=== PATIENT | female | born 1950 | race Caucasian/White ===

== ENCOUNTER → 2016-03-23 | Outpatient (CLI) | payer OTHER ==
[~2016-03-23] MED LIST: CHOL2000 PO; CYAN10004 PO; HYDR-5688 PO; LEVO75TA5 PO; MULT-190 PO; PRAV20TA PO
== END | disposition home or self-care (01) ==
LOC: C.RDSM 15:21
PROVIDERS: ATTEND Physical Medicine & Rehabilitation Sports Medicine
DX: M75.121 Complete rotator cuff tear or rupture of right shoulder, not specified as traumatic (principal)

== ENCOUNTER → 2016-04-29 | Day surgery (SDC) | payer OTHER ==
[2016-03-24 09:19] VITALS: BMI 26.0
[2016-04-09 08:29] VITALS: Ht 165.1 cm; Wt 72.7 kg
--- NOTE | 2016-04-09 14:49 | PAT Medication Instructions ---
Service Date Apr 09, 2016. Current Home Medication List Cholecalciferol (Vitamin D3), 1 CAP PO NOON Cyanocobalamin (Vitamin B-12 1000 Mcg), 1,000 MCG PO NOON Levothyroxine Sodium (Levothyroxine Sodium), 1 TAB PO QAM Ocuvite Preservision (Ocuvite Preservision), 1 TAB PO NOON Pravastatin Sodium (Pravachol), 20 MG PO HS Medication Instructions For Your Scheduled Surgery - Hold the following medications the morning of surgery: Ocuvite Preservision (Ocuvite Preservision), 1 TAB PO NOON Cholecalciferol (Vitamin D3), 1 CAP PO NOON Cyanocobalamin (Vitamin B-12 1000 Mcg), 1,000 MCG PO NOON - Take the following medications the morning of surgery with a sip of water: Levothyroxine Sodium (Levothyroxine Sodium), 1 TAB PO QAM - Take the following medications as scheduled the night before surgery: Pravastatin Sodium (Pravachol), 20 MG PO HS If you have any questions please call us at [phone] or [phone] ( [place]) or [phone]
[2016-04-09 15:19] LABS: HEMATOCRIT 40.1 % (37-47); MEAN CELL VOLUME 85.9 fL (80-100); MEAN CORPUSCULAR HEMOGLOBIN 30.2 pg (25-34); MEAN CORPUSCULAR HGB CONC 35.2 g/dl (32-36); MEAN PLATELET VOLUME 10.1 fL (7.4-10.4); PLATELET COUNT 252 K/uL (130-400); RED BLOOD COUNT 4.67 M/uL (4.2-5.4)
--- NOTE | 2016-04-09 15:23 | DIAGNOSTIC IMAGING REPORT ---
CHEST PREADMISSION(PA/LAT) CLINICAL HISTORY: Preoperative chest COMPARISON STUDY: No previous studies for comparison. FINDINGS: The cardiac and mediastinal contours are normal. There is no evidence of focal pulmonary consolidation. There is no evidence of failure. No pleural effusions are visualized.[ IMPRESSION: No active disease in the chest. Electronically signed by: Shaun Blackwood M.D. 04/09/2016 3:21 PM Dictated Date/Time: 04/09/2016 3:21 PM
[2016-04-09 15:38] LABS: BUN/CREATININE RATIO 21.7 (10-20); CALCIUM 9.3 mg/dl (8.5-10.1); CREATININE 0.75 mg/dl (0.60-1.20); POTASSIUM 3.8 mmol/L (3.5-5.1)
[~2016-04-29] VITALS: Ht 165.1 cm; Wt 72.7 kg
[~2016-04-29] MED LIST changes: +ATROPINE SULFATE 0.1 MG/ML 5ML SYR IV PRN; +BUPIVACAINE/EPINEPHRINE 0.25% 1:200,000 30 ML VIAL ONE; +BUPIVACAINE/EPINEPHRINE 0.5% MPF 1:200,000 30 ML VIAL ONE; +CEFAZOLIN 1000MG/55 ML D5W IV SCH; +DEXAMETHASONE SOD INJ 4 MG/ML VIAL ONE; +EpHEDrine SULFATE INJ 50 MG/ML AMP IV PRN; +EpHEDrine SULFATE INJ 50 MG/ML AMP ONE; +EpINEphrine INJ 1MG/ML AMP 1 MG/ML AMP ONE; +FENTANYL CITRATE INJ 50 MCG/1 ML 2 ML VIAL ONE; +GLYCOPYRROLATE INJ 0.2 MG/ML VIAL ONE; +HYDROmorphone INJ 2 MG/ML SYR/VIAL IV PRN; +LACTATED RINGER'S 1000ML 1,000 ML IV SCH; +LIDOCAINE HCL 1% MPF 2 ML VIAL ONE; +LIDOCAINE HCL 2% 2 ML VIAL (20MG/ML) ONE; +LIDOCAINE/EPINEPHRINE 1% INJ 50 ML VIAL ONE; +MIDAZOLAM HCL 1 MG/ML 2ML VIAL ONE; +MoRPHine SULFATE 2 MG/ML CARP IV PRN; +MoRPHine SULFATE 4 MG/ML 1 ML CARP\\VIAL IV PRN; +NEOSTIGMINE METHYLSULFATE 5 MG/5 ML SYR ONE; +ONDANSETRON INJ 2 MG/ML 2 ML VIAL IV PRN; +ONDANSETRON INJ 2 MG/ML 2 ML VIAL ONE; +OXYCODONE/ACETAMINOPHEN 5-325 TAB PO PRN; +PHENYLEPHRINE 100MCG/ML 5ML SYR IV PRN; +PHENYLEPHRINE HCL INJ 10 MG/ML VIAL ONE; +PROPOFOL IV EMULSION 10 MG/ML 20 ML VIAL IV ONE; +ROCURONIUM BROMIDE 10 MG/ML 5 ML VIAL ONE; +ROPIVACAINE 0.5% 5 MG/ML 30 ML VIAL ONE; +SODIUM CHLORIDE 0.9% 1000ML 1,000 ML IV SCH; +SUCCINYLCHOLINE CHLORIDE 20 MG/ML 10 ML VIAL IV ONE
--- NOTE | 2016-04-29 08:19 | History & Physical Bridge Note ---
H&P Re-Evaluation Bridge Note: I have examined the patient, reviewed the History & Physical and in the interval since the performance of the History & Physical I have noted the following changes of clinical significance: No changes noted
[2016-04-29] MEDS: SCOPOLAMINE 1.5 MG TDSY TD ONE ×2 (09:30→09:34)
--- NOTE | 2016-04-29 12:55 | [facility] Post Operative Brief Note ---
Immediate Operative Summary Operative Date Apr 29, 2016. Pre-Operative Diagnosis Right Shoulder Rotator Cuff Tear Post-Operative Diagnosis Same Procedure(s) Performed Right Shoulder Arthroscopic Rotator Cuff Repair, Subacromial Decompression, biceps tenotomy Surgeon Dr. Cm Molding Machine Operator Surgeon(s) Dr. Quesada; Ryder Mcgrath PA-C Estimated Blood Loss 25ml Findings cuff tear 2.5-3cm Specimens None Anesthesia SANCHEZ with block Complication(s) None Disposition Recovery Room / PACU
--- NOTE | 2016-04-29 13:12 | Discharge Instructions-SurgCtr ---
Discharge Instructions Date of Service Apr 29, 2016. Visit Reason for Visit: Right Shoulder Rotator Cuff Tear Discharge Discharge Diagnosis / Problem: Right shoulder rototor cuff repair Discharge Goals Goal(s): Decrease discomfort, Improve function, Increase independence Activity Recommendations Activity Limitations: per Instructions/Follow-up section No range of motion right shoulder Anesthesia . Post Anesthesia Instructions: If you have had General Anesthesia or IV Sedation: * Do not drive today. * Resume driving when surgeon permits. * Do not make important decisions or sign legal documents today. * Call surgeon for: 1. Temperature elevations greater than 101 degrees F. 2. Uncontrollable pain. 3. Excessive bleeding. 4. Persistent nausea and vomiting. 5. Medication intolerance (nausea, vomiting or rash). * For nausea and vomiting use only clear liquids such as: tea, soda, bouillon until nausea subsides, then gradually increase diet as tolerated. * If you have any concerns or questions, call your surgeon's office. If physician is unavailable and it is an emergency, call 911 or go to the nearest emergency room. . Instructions / Follow-Up Instructions / Follow-Up The following are instructions to follow after "Shoulder Surgery" including, Acromioplasty, Rotator Cuff Repair and Instability Surgery ACTIVITY RECOMMENDATIONS: * Minimize activity after surgery. * No excessive walking, jogging, sports or laboring. * Return to activity is individualized depending on the patient and type of surgery. * Driving is not permitted until at least your first post operative visit. Please ask your doctor when it is safe to resume driving. * Expect increased discomfort with increased activity. Continue to ice the shoulder as needed. SCHOOL/WORK RECOMMENDATIONS: * You may return to sedentary work or school when you are feeling more comfortable. This is usually 3-7 days after surgery. MEDICATIONS: * You will have a prescription for pain medication and an anti-inflammatory medication after surgery. * Use the pain medication for severe pain and the anti-inflammatory for less severe pain. Once the pain medication has run out, try to use the anti-inflammatory medication. If this is not effective, contact the office for assistance. * The pain medication may cause nausea, constipation and drowsiness. You should see how they affect you before driving or similar activity. * The anti-inflammatory medication may cause stomach upset and bleeding. If this occurs let your doctor know immediately . * Take a stool softener like Colace or a laxative like Senokot to prevent constipation. DIET: * Resume previous diet. SPECIAL CARE: ICE: You have the option of an ice cooler, gel packs or ice bags. * If you have an ice cooler, refer to the instructions for that device. The ice cooler may be used continuously. * If you do not have an ice cooler, you will need to use ice bags or gel packs. Do not apply ice directly to the skin. Use a thin dressing or richard shirt between the skin and ice bag. Apply ice for 20-30 minutes and repeat every 2-4 hours. This is especially important for the first 7-10 days after surgery. Once the pain improves, use ice as needed. ELEVATION: * You may be more comfortable sleeping in an upright position. Use the sling to elevate your arm. DRESSING: * Your dressing will be changed at your first therapy appointment approximately 4-5 days after surgery. Band-aids, tape strips or gauze may be applied. You may then change your dressing daily. * Reapply dressing followed by the EBIce cooling pad (if chosen) and then the sling. * Always wash your hands prior to touching the incision area. * Once the stitches are removed, you may leave the wound open to air or cover with gauze. * Expect some bloody drainage for the first few days after surgery. * Leave the tape strips, if present, in place for 5-7 days. * Band-aids and gauze may be changed daily. * There may be a gauze pad in your armpit area. This can be changed daily or replaced by a dry washcloth. SLING/BRACE: * You will need to use a sling or brace after surgery. The length of time the sling is used is dependent upon the type of surgery performed. * Arthroscopic Acromioplasty requires use of the sling for 2-4 weeks for comfort. * Labral procedures and Rotator Cuff Repairs require use of the sling for a longer period of time. Please check with your doctor prior to discontinuing the sling. BATHING: * You may shower or sponge-bathe immediately after surgery. The post operative shoulder dressing is mostly water-tight. You may shower right over this dressing, but be reasonably careful not to get the gauze or incision wet. * Once the dressing has been changed on the fourth or fifth day after surgery, you may shower and get the incision wet. * Wash with regular soap and water. * Do not bathe (submerge the incision), soak, swim or use a hot tub until the incision is completely healed over with normal skin and the doctor has given the OK to proceed. * There is no need to apply any ointments, powders or salves to your incision. * Do not apply alcohol or hydrogen peroxide directly to the incision. * Diluted peroxide (50:50 mixture with sterile saline) may be used to clean dried blood from around the incision area. THERAPY: * You will begin therapy four or five days after surgery. * Organized therapy with the therapist is important for the first 2-4 months after surgery depending on the type of procedure. During that time you will attend therapy 1-3 times per week. * You will also need to do daily exercises for range of motion and strength as instructed. * Patients who have a Capsular Shift Procedure will need to abide by temporary range of motion limitations. * Patients having Rotator Cuff Surgery are not allowed to actively lift their arms until 4-6 weeks after surgery. * Please check with your doctor regarding appropriate motion restrictions. FOLLOW UP VISIT: * If not already scheduled, please call the office at to schedule a follow-up appointment for 10 days after surgery and monthly thereafter. * Follow up with Dr. Cm on 05/10/16 at 12:00 p.m. * Start physical therapy as scheduled on Tuesday or Tuesday in [facility]. Diet Recommendations Home Diet: no limitations, resume previous diet Procedures Procedures Performed: Right Shoulder Arthroscopic Rotator Cuff Repair, Subacromial Decompression, biceps tenotomy Pending Studies Studies pending at discharge: no Medical Emergencies . Who to Call and When: Medical Emergencies: If at any time you feel your situation is an emergency, please call 911 immediately. . Non-Emergent Contact Non-Emergency issues call your: Primary Care Provider, Surgeon Call Non-Emergent contact if: temperature is above 101.5, your pain is not controlled, your pain is worsening . . "Provider Documentation" section prepared by Alyson Mcgrath.
--- NOTE | 2016-04-29 13:18 | [facility] Operative Report ---
Operative Report Operative Date Apr 29, 2016. Pre-Operative Diagnosis Right Shoulder Rotator Cuff Tear Post-Operative Diagnosis Right shoulder rotator cuff tear Procedure(s) Performed Right shoulder arthroscopy, subacromial decompression, rotator cuff repair, biceps tenotomy Surgeon Dr. Cm Housing Inspectors Surgeon(s) Dr. Quesada; Ryder Mcgrath PA-C Estimated Blood Loss 25ml Findings large rotator cuff tear Specimens None Anesthesia SANCHEZ with block Complication(s) None Disposition Recovery Room / PACU Indications Patient is a 65 year old female, s/p right shoulder injury. Failed conservative treatment. X-rays/MRI obtained, found to have a right rotator cuff tear, surgery recommended. Risks/complications discussed, informed consent obtained. Description of Procedure Patient was taken to the operating room, given IV Ancef for surgical prophylaxis. Time out performed, prepped and draped in routine sterile fashion. I was present the entire case, please see Dr. Cm's operative report for further detail. Patient was awakened and taken to the recovery room in stable condition. I attest to the content of the Intraoperative Record and any orders documented therein. Any exceptions are noted below.
--- NOTE | 2016-04-29 13:32 | OPERATIVE REPORT ---
DATE OF OPERATION: 04/29/2016 PREOPERATIVE DIAGNOSIS: Right shoulder rotator cuff tear. POSTOPERATIVE DIAGNOSIS: Same. PROCEDURE: Arthroscopic repair of right shoulder rotator cuff tear. SURGEON: Dr. Cm. MID LEVEL JAVA DEVELOPER: Alyson Mcgrath and Dr. Min Ospina, fellow. ANESTHESIA: Laryngeal mask with interscalene block. INDICATIONS OF PROCEDURE: The patient is a 65-year-old female with a long history of right shoulder pain. MRI confirms a diagnosis of a rotator cuff tear. She has elected to proceed with operative intervention. She does have some atrophy and mild retraction indicating likely a chronic tear. This looked like a crescent tear about 2 cm in size. PROCEDURE IN DETAIL: Informed consent was obtained. The patient identified as Kat Diamond. She identified the operative site as the right shoulder. I marked with my initials. A preop surgical time out was performed. A preop dose of IV antibiotics was given. She was positioned supine on the operating room table. The anesthetic was administered. She was positioned beach chair. The neck was held in neutral alignment. The torso was secured to the table. The knees were flexed. The heels were padded. The mastoid processes were also padded. The exam under anesthesia revealed no instability and full range of motion equal to the opposite side. The right upper extremity was prepped and draped in usual sterile fashion. The subacromial space and AC area were injected with 1% lidocaine with epinephrine. She did not have a symptomatic AC joint prior to surgery. The Bardolph body positioner and 3 monal arm holders were utilized. DVT prophylaxis with foot pumps intraoperatively, early mobility postoperatively. Routine prep and drape was performed. The axilla was excluded from the field with Ioban. A posterior soft spot viewing portal was established followed by an anterior mid glenoid working portal using the outside-in technique. The internal structures of the shoulder were normal. There was some minor fraying around the labrum. The biceps was intact but due to the size and location of the tear adjacent to the biceps I elected to proceed with a tenotomy, which was performed. Subscapularis was intact. Infraspinatus and teres minor were intact. There were no loose bodies. The articular surfaces were normal. Axillary pouch unremarkable. The rotator cuff tear was noted. The scope was placed in the subacromial space. Accessory lateral portals x3 were created with 8 mm cannulas. The rotator cuff was noted to be a medium crescent which could be reopposed. It had more posterior to anterior mobility. The rotator interval was debrided. The undersurface of the cuff was mobilized as there was a delamination tear present. The delamination was grasped and the capsule between the glenoid and the undersurface of the cuff was carefully resected with basket forceps and a motorized shaver staying right at the margin of the glenoid and not going any further than a centimeter medial. The superior surface of the cuff was mobilized using the shaver and cold cut. The coracohumeral ligament was released and this improved undersurface flap mobility and overall mobility. The greater tuberosity was prepared with a shaver and curette. The tear was 2.5 to 3 cm in size. Two 5.5 BioComposite anchors were inserted at the junction of the anterior, middle and posterior middle thirds of the rotator cuff tear adjacent to the articular cartilage margin at an angle of insertion of about 30-40 degrees. The anchors were inserted. Suture management was performed. Both of the posterior stitches were passed through the full-thickness of the delamination and carefully passed through the upper surface so as to not over tension the delamination, but to properly advance and tension the upper flap. This was done with a crescent suture hook passer with all 4 sutures being passed through the posterior anchor. Likewise one of the stitches from the anterior anchor was passed through the delamination. This could not be completely grabbed because it did not have adequate mobility centrally. The anchors for sutures were passed in a horizontal mattress fashion. Sutures were then tied in a tension free fashion using a modified Rindge knot backed up with reverse half hitches on alternating posts yielding a good repair. A lateral row anchor was inserted, 1 limb of each of the other sutures for a total of 4 limbs was then passed laterally. A regional airline pilot hole was created and a 5.5 BioComposite SwiveLock anchor was inserted for lateral row fixation which gave excellent compression and apposition of the lateral rotator cuff covering about 90% of the footprint. Slight deficiency anteriorly. The middle portion was dog-eared and I took the central stitch passed it through with the scorpion and tied that back down for excellent apposition. The undersurface of the acromion was denuded of soft tissue. The coracoacromial ligament was released and a modified cutting block acromioplasty was performed anterior and lateral removing about 2-4 mm of anterior bone. The shaver was run through the shoulder to slate picker loose debris. The scope was placed into the joint to show that the tendon had been reapproximated. Care was taken to not over tension things. There was a delamination and again I carefully brought that delamination forward and incorporated it into the main body of the repair which was advanced medial to lateral but mostly posterior to anterior. The portals were closed with 4-0 nylon, soft sterile dressing was applied, ABD in the armpit, UltraSling. The patient awakened from anesthesia without difficulty and taken to recovery in stable condition. There were no specimens or complications. Counts were correct at the end of case. Blood loss was approximately 25 mL. At the conclusion of the operation, I spoke to patient's family and informed them of my findings. Postoperative instructions were given. She can have a postop visit or PT visit for dressing change. She can do active movement of the hand, wrist, and elbow, but there will be no therapy on the shoulder at this time due to the delamination and size of the tear. We will plan on immobilization times approximately 1 month followed by initiation of the rotator cuff repair protocol. She is not to be abducting or rotating her arm. BioComposite anchors were utilized. She will thereafter be rehabilitated according to my rotator cuff repair protocol. I attest to the content of the Intraoperative Record and any orders documented therein. Any exceptio ns are noted below.
--- NOTE | 2016-04-29 14:30 | Anesthesia Progress Nt - [facility] ---
Anesthesia Post Op Note Date & Time Apr 29, 2016 at 14:30 Vital Signs Pain Intensity: 0 Vital Signs Past 12 Hours Date Time Temp Pulse Resp B/P Pulse Ox O2 Delivery O2 Flow Rate FiO2 04/29/16 14:09 36.1 82 16 121/70 94 Room Air 04/29/16 13:52 84 14 04/29/16 13:52 84 14 93 04/29/16 13:51 36.2 04/29/16 13:50 138/66 04/29/16 13:47 88 15 94 04/29/16 13:47 88 15 04/29/16 13:45 139/72 04/29/16 13:42 84 19 98 04/29/16 13:42 84 19 04/29/16 13:41 159/89 04/29/16 13:39 85 18 99 04/29/16 13:39 86 18 04/29/16 13:37 113/43 04/29/16 13:34 85 15 04/29/16 13:34 85 15 99 04/29/16 13:31 124/78 04/29/16 13:29 87 15 04/29/16 13:29 87 15 100 04/29/16 13:25 139/77 04/29/16 13:24 84 15 99 04/29/16 13:24 84 15 04/29/16 13:20 134/75 04/29/16 13:19 90 17 99 04/29/16 13:19 90 17 04/29/16 13:15 148/75 04/29/16 13:14 83 14 100 04/29/16 13:14 83 14 04/29/16 13:11 148/80 04/29/16 13:10 36.2 87 16 148/80 100 Diffusion Mask 6 04/29/16 09:20 66 16 144/78 100 Diffusion Mask 5 04/29/16 07:50 99 Diffusion Mask 5 04/29/16 07:17 36.7 77 16 133/88 98 Room Air Notes Mental Status: alert / awake / arousable, participated in evaluation Pt Amnestic to Procedure: Yes Nausea / Vomiting: adequately controlled Pain: adequately controlled Airway Patency, RR, SpO2: stable & adequate BP & HR: stable & adequate Hydration State: stable & adequate Anesthetic Complications: no major complications apparent
[2016-04-29 15:00] VITALS: BP 113/71; PULSE 92; TEMP 36.4; O2SAT 96
== END | disposition home or self-care (01) ==
LOC: X.SURG 07:02
PROVIDERS: ATTEND Physical Medicine & Rehabilitation Sports Medicine
DX: M75.101 Unspecified rotator cuff tear or rupture of right shoulder, not specified as traumatic (principal); Z98.890 Other specified postprocedural states; Z90.49 Acquired absence of other specified parts of digestive tract; Z98.1 Arthrodesis status; E78.5 Hyperlipidemia, unspecified; E03.9 Hypothyroidism, unspecified

== ENCOUNTER → 2016-05-10 | Outpatient (CLI) | payer OTHER ==
[~2016-05-10] MED LIST changes: -ATROPINE SULFATE 0.1 MG/ML 5ML SYR IV PRN; -BUPIVACAINE/EPINEPHRINE 0.25% 1:200,000 30 ML VIAL ONE; -BUPIVACAINE/EPINEPHRINE 0.5% MPF 1:200,000 30 ML VIAL ONE; -CEFAZOLIN 1000MG/55 ML D5W IV SCH; -DEXAMETHASONE SOD INJ 4 MG/ML VIAL ONE; -EpHEDrine SULFATE INJ 50 MG/ML AMP IV PRN; -EpHEDrine SULFATE INJ 50 MG/ML AMP ONE; -EpINEphrine INJ 1MG/ML AMP 1 MG/ML AMP ONE; -FENTANYL CITRATE INJ 50 MCG/1 ML 2 ML VIAL ONE; -GLYCOPYRROLATE INJ 0.2 MG/ML VIAL ONE; -HYDROmorphone INJ 2 MG/ML SYR/VIAL IV PRN; -LACTATED RINGER'S 1000ML 1,000 ML IV SCH; -LIDOCAINE HCL 1% MPF 2 ML VIAL ONE; -LIDOCAINE HCL 2% 2 ML VIAL (20MG/ML) ONE; -LIDOCAINE/EPINEPHRINE 1% INJ 50 ML VIAL ONE; -MIDAZOLAM HCL 1 MG/ML 2ML VIAL ONE; -MoRPHine SULFATE 2 MG/ML CARP IV PRN; -MoRPHine SULFATE 4 MG/ML 1 ML CARP\\VIAL IV PRN; -NEOSTIGMINE METHYLSULFATE 5 MG/5 ML SYR ONE; -ONDANSETRON INJ 2 MG/ML 2 ML VIAL IV PRN; -ONDANSETRON INJ 2 MG/ML 2 ML VIAL ONE; -OXYCODONE/ACETAMINOPHEN 5-325 TAB PO PRN; -PHENYLEPHRINE 100MCG/ML 5ML SYR IV PRN; -PHENYLEPHRINE HCL INJ 10 MG/ML VIAL ONE; -PROPOFOL IV EMULSION 10 MG/ML 20 ML VIAL IV ONE; -ROCURONIUM BROMIDE 10 MG/ML 5 ML VIAL ONE; -ROPIVACAINE 0.5% 5 MG/ML 30 ML VIAL ONE; -SODIUM CHLORIDE 0.9% 1000ML 1,000 ML IV SCH; -SUCCINYLCHOLINE CHLORIDE 20 MG/ML 10 ML VIAL IV ONE
== END | disposition home or self-care (01) ==
LOC: C.RDSM 12:00
PROVIDERS: ATTEND Physical Medicine & Rehabilitation Sports Medicine
DX: Z98.890 Other specified postprocedural states (principal)